=== PATIENT | female | born 1965 | race Caucasian/White ===

== ENCOUNTER 2018-10-19 17:37 | Emergency (ER) | payer OTHER ==
[2018-10-19 17:47] VITALS: BP 134/68
[2018-10-19] MEDS ORDERED: LIDOCAINE 2% 10 ML MDV SUBQ STA (18:30)
--- NOTE | 2018-10-19 18:36 | XRAY Report ---
Reason: lacerations from glass, poss FB? Procedure Date: 10/19/2018 Accession Number: [id number] / [id number] Procedure: XR - Hand 3 View RT CPT Code: FULL RESULT: EXAM: RIGHT HAND RADIOGRAPHY EXAM DATE: 10/19/2018 06:25 PM. CLINICAL HISTORY: Lacerations from glass, poss FB?. COMPARISON: None. TECHNIQUE: 3 views. FINDINGS: Bones: No acute fractures or suspicious bone lesions. Joints: No subluxations. Severe osteoarthritis of the first carpometacarpal joint. Soft Tissues: 3 mm radiopaque foreign body in the palmar soft tissues at the level of the second proximal phalanx. IMPRESSION: 3 mm radiopaque foreign body in the soft tissues adjacent to the second proximal phalanx. RADIA
--- NOTE | 2018-10-19 18:45 | ED Physician Documentation ---
PD HPI UPPER EXT INJURY - Stated complaint Stated Complaint: RT HAND INJ - Chief complaint Chief Complaint: Laceration - History obtained from History obtained from: Patient - History of Present Illness Location: Right, Hand Type of injury: Laceration (glass jar broke in R hand) Where injury occurred: Home Timing - onset: Today Timing - duration: Hours (1) Timing - details: Abrupt onset Pain level max: 6 Pain level now: 6 Improved by: Rest Worsened by: Moving, Palpating Associated symptoms: No: Weakness, Numbness, Tingling, Swelling Contributing factors: No: Anticoagulated Recently seen: Not recently seen - Additonal information Additional information: pt is right handed Review of Systems Constitutional: denies: Fever GI: denies: Vomiting Skin: denies: Rash Neurologic: denies: Focal weakness, Numbness PD PAST MEDICAL HISTORY - Past Medical History Past Medical History: No - Past Surgical History Past Surgical History: Yes Ortho: Other /[employer]: section HEENT: Other - Present Medications Home Medications: Ambulatory Orders Medication Instructions Recorded Confirmed raNITIdine [Zantac] 150 mg PO DAILY 10/19/18 10/19/18 - Allergies Allergies/Adverse Reactions: Allergies Allergy/AdvReac Type Severity Reaction Status Date / Time No Known Drug Allergies Allergy Verified 10/19/18 17:47 - Social History Does the pt smoke?: No Smoking Status: Never smoker Does the pt drink ETOH?: Yes ETOH Use: Wine Does the pt have substance abuse?: No - Immunizations Immunizations are current?: No Immunizations: TDAP >10years/unknown PD ED PE NORMAL - Vitals Vital signs reviewed: Yes - General General: Alert and oriented X 3, No acute distress - HEENT HEENT: Moist mucous membranes - Neck Neck: Supple, no meningeal sign - Derm Derm: Warm and dry - Neuro Neuro: Alert and oriented X 3 - Psych Psych: Normal mood, Normal affect PD ED PE EXPANDED - Extremities XENA UE/Hands Visual: 1 - laceration (5cm, deep, NVI. tendons intact. no FB seen) 2 - laceration (flap, superficial 3cm) 3 - laceration (1cm, superificial) 4 - laceration (1 cm superficial.) Results - Vitals Vitals: Vital Signs - 24 hr 10/19/18 17:43 Temperature 37.1 C Heart Rate 66 Respiratory 14 Rate Blood Pressure 134/68 H O2 Saturation 99 Oxygen O2 Source Room air - Rads (name of study) R hand xray Radiology: Prelim report reviewed, EMP read contemporaneously, See rad report (3 mm radiopaque foreign body in the soft tissues adjacent to the second proximal phalanx. ) Procedures - Laceration (location) R index finger 1 Length in cm: 5 Wound type: Linear, Into subcut fat, Clean Neurovascular status: Sensory intact, Motor intact, Vascular intact Tendon involvement: Tendon intact Anesthesia: Lidocaine 2% Wound Preparation: Irrigated copiously NS (250ml), Wound explored, To the base. No: FB identified, FB removed Skin layer closure: Nylon, Interrupted, Size #-0 - enter number (4) Other: Patient tolerated well, No complications, Neurovascular intact, Dressing applied, Tetanus booster given (tdap) Complexity: Simple R index 2 Wound type: Curved, Flap, Superficial, Clean Neurovascular status: Sensory intact, Motor intact, Vascular intact Anesthesia: Lidocaine 2% Wound Preparation: Irrigated copiously NS, Wound explored, To the base. No: FB identified, FB removed Skin layer closure: Nylon, Dermabond, Interrupted, Size #-0 - enter number (4), Sutures - enter # (1) Other: Patient tolerated well, No complications, Neurovascular intact Complexity: Simple R 3rd and 4th MCP joints Length in cm: 2 Wound type: Curved, Superficial Neurovascular status: Sensory intact, Motor intact, Vascular intact Tendon involvement: Tendon intact. No: Tendon Injury Anesthesia: Lidocaine 2% Wound Preparation: Irrigated copiously NS, Wound explored, To the base Skin layer closure: Dermabond Other: Patient tolerated well, No complications, Neurovascular intact Complexity: Simple PD MEDICAL DECISION MAKING - ED course Complexity details: reviewed results, re-evaluated patient, considered differential, d/w patient ED course: 53-year-old female with 4 lacerations on the right hand from a broken glass jar. 1 of these is deep and does require several sutures. No foreign body visible wound cleaning or upon irrigation. X-ray did show a 3 mm piece of glass, but this is not visible when cleaning the wound. Neurovascularly intact. Tendon intact. The other wounds were closed with Dermabond. Tolerated well. Warnings of infection and instructions on wound care given at bedside. Also counseled on how to minimize scarring. Patient counseled regarding signs and symptoms for which I believe and urgent re-evaluation would be necessary. Patient with good understanding of and agreement to plan and is comfortable going home at this time This document was made in part using voice recognition software. While efforts are made to proofread this document, sound alike and grammatical errors may occur. Departure - Departure Disposition: 01 Home, Self Care Clinical Impression: Hand laceration Qualifiers: Encounter type: initial encounter Foreign body presence: with foreign body Laterality: right Qualified Code(s): S61.421A - Laceration with foreign body of right hand, initial encounter Condition: Good Instructions: ED Laceration Hand Follow-Up: your,doctor in 10-14 days for suture removal. [Other] Comments: Return if you worsen. Keep the wounds clean. Do not apply any ointment to the gluteal areas as this will dissolve the glue. You can remove the finger splint in approximately 3 days. Return if you notice redness, swelling or drainage from the wound. The sutures should be removed in approximately 10 to 14 days with your doctor. Discharge Date/Time: 10/19/18 19:45
[2018-10-19] MEDS ORDERED: TETANUS/DIPHTHERIA/PERTUSSIS 0.5 ML SYRINGE IM ONE (19:26)
[2018-10-19] MEDS ORDERED: BACITRACIN OINT TOP STA (19:28)
== END 2018-10-19 19:45 | disposition home or self-care (01) ==
LOC: ED 17:37
DX: S61.421A Laceration with foreign body of right hand, initial encounter (principal); W25.XXXA Contact with sharp glass, initial encounter; Y93.89 Activity, other specified; Y92.009 Unspecified place in unspecified non-institutional (private) residence as the place of occurrence of the external cause; Z23 Encounter for immunization
CPT/HCPCS: 12004; 90471; 99282; 99283